=== PATIENT | female | born 1980 | race Caucasian/White ===

== ENCOUNTER 2017-03-18 12:45 | Inpatient (IN) | payer BC ==
[~2017-03-18] VITALS: Ht 167.6 cm; Wt 77.7 kg
[~2017-03-18 12:45] MED LIST: ASPI-496 PO; OXYC-302 PO; PNV#1COM9 PO
[2017-03-18 13:30] VITALS: BP 180/100
[2017-03-18] MEDS ORDERED: LABETALOL 5MG/ML, 20ML IVPush ONE (13:30)
[2017-03-18] MEDS ORDERED: LACTATED RINGERS 1,000 ML IV SCH (13:30)
[2017-03-18 13:43] LABS: ASPARTATE AMINO TRANSFERASE 25 U/L (15-37); BLOOD UREA NITROGEN 7 mg/dL (7-18)
[2017-03-18 13:55] LABS: DIFF TOTAL CELLS COUNTED 100 CELL DIFF
[2017-03-18 13:56] LABS: VERIFY COUNTS? YES
[2017-03-18] MEDS ORDERED: PLEASE ENTER HEIGHT AND WEIGHT MC SCH (14:00)
[2017-03-18] MEDS ORDERED: niFEDipine ER 60 MG TABLET.ER PO ONE (15:00)
[2017-03-18] MEDS ORDERED: niFEDipine ER 30 MG TABLET.ER PO ONE (15:30)
[2017-03-18] MEDS ORDERED: BETAMETHASONE 6 MG/ML, 5ML IM ONE (18:22)
[2017-03-18] MEDS: BETAMETHASONE 6 MG/ML, 5ML IM SCH (18:26)
[2017-03-18] MEDS: SODIUM CHLORIDE FLUSH 10ML SYR IVF SCH (20:48)
[2017-03-19] MEDS: SODIUM CHLORIDE FLUSH 10ML SYR IVF SCH ×3 (08:38→21:07)
[2017-03-19] MEDS ORDERED: niFEDipine ER 30 MG TABLET.ER PO SCH (09:00)
[2017-03-19] MEDS ORDERED: BETAMETHASONE 6 MG/ML, 5ML IM ONE ×2 (18:21→18:24)
[2017-03-19] MEDS: BETAMETHASONE 6 MG/ML, 5ML IM SCH (18:29)
[2017-03-19] MEDS: LABETALOL 200 MG TABLET PO SCH (18:35)
[2017-03-20 06:02] LABS: BLOOD UREA NITROGEN 12 mg/dL (7-18)
[2017-03-20 06:06] LABS: ASPARTATE AMINO TRANSFERASE 15 U/L (15-37)
[2017-03-20 08:07] VITALS: BP 134/77
[2017-03-20] MEDS: LABETALOL 200 MG TABLET PO SCH (08:20)
[2017-03-20] MEDS: SODIUM CHLORIDE FLUSH 10ML SYR IVF SCH (08:23)
[2017-03-20] MEDS ORDERED: ASPI-515 PO (15:23)
[2017-03-20] MEDS ORDERED: PREN1TAB60 PO (15:24)
[2017-03-20] MEDS ORDERED: LABE200T3 PO (15:25)
== END 2017-03-20 15:38 | disposition home or self-care (01) | DRG 782 ==
LOC: LDOP 12:45 → OBSVTOIN 13:27 → LDIP 13:27
PROVIDERS: ADMIT Obstetrics & Gynecology; ATTEND Obstetrics & Gynecology
DX: O13.3 Gestational [pregnancy-induced] hypertension without significant proteinuria, third trimester (principal); O99.113 Other diseases of the blood and blood-forming organs and certain disorders involving the immune mechanism complicating pregnancy, third trimester; D68.61 Antiphospholipid syndrome; O34.219 Maternal care for unspecified type scar from previous cesarean delivery; Z3A.28 28 weeks gestation of pregnancy
CPT/HCPCS: 36415; 76805; 80053; 81003; 81050; 82248; 82570; 82950; 84156; 84550; 85025; J0702; J7120

== ENCOUNTER 2017-04-05 14:08 | Inpatient (IN) | payer BC ==
[~2017-04-05] VITALS: Ht 167.6 cm; Wt 76.8 kg
[~2017-04-05 14:08] MED LIST changes: +ASPI-515 PO; +LABE200T3 PO; +PREN1TAB60 PO
[2017-04-05 14:22] VITALS: BP 143/97
[2017-04-05 14:53] LABS: PATH.CAST-FLAG NOT PRESENT; SPERM-FLAG NOT PRESENT; SRC-FLAG NOT PRESENT; XTAL-FLAG NOT PRESENT; YLC-FLAG NOT PRESENT
[2017-04-05 14:57] LABS: ASPARTATE AMINO TRANSFERASE 15 U/L (15-37); BLOOD UREA NITROGEN 9 mg/dL (7-18)
[2017-04-05] MEDS ORDERED: hydrALAzine 20 MG/ML, 1ML ONE ×2 (18:11→20:45)
[2017-04-05] MEDS: hydrALAzine 20 MG/ML, 1ML IV PRN ×2 (18:13→20:49)
[2017-04-05] MEDS: PRENATAL VIT/IRON/FA 1 EACH TABLET HOMEMEDPO SCH (20:22)
[2017-04-05] MEDS: ASPIRIN 81 MG TABLET CHEW HOMEMEDPO SCH (20:22)
[2017-04-05] MEDS: LABETALOL 200 MG TABLET HOMEMEDPO SCH (20:22)
[2017-04-05] MEDS: SODIUM CHLORIDE FLUSH 3ML SYRINGE IVF SCH (21:00)
[2017-04-05] MEDS: KETOROLAC 30 MG/1 ML IV SCH (22:30)
[2017-04-05] MEDS ORDERED: NEWBORN KIT ONE (22:30)
[2017-04-05] MEDS ORDERED: METOCLOPRAMIDE 5 MG/ML, 2ML ONE (22:48)
[2017-04-05] MEDS ORDERED: SODIUM CITRATE/CITRIC ACID 30 ML UDC ONE (22:48)
[2017-04-05] MEDS ORDERED: LACTATED RINGERS 1,000 ML IV SCH (22:57)
[2017-04-05] MEDS ORDERED: morphine SULFATE/PF 0.5 MG/ML, 10ML ONE (22:58)
[2017-04-05] MEDS ORDERED: LACTATED RINGERS 1,000 ML IVBOLUS ONE (23:00)
[2017-04-05] MEDS ORDERED: METOCLOPRAMIDE 5 MG/ML, 2ML IV ONE (23:00)
[2017-04-05] MEDS ORDERED: SODIUM CITRATE/CITRIC ACID 30 ML UDC PO ONE (23:00)
[2017-04-05] MEDS ORDERED: OXYTOCIN 30U/ 0.9% NaCL 500ML 500 ML ONE (23:13)
[2017-04-05] MEDS: LACTATED RINGERS 1,000 ML IV SCH ×2 (23:16)
[2017-04-05] MEDS ORDERED: CEFAZOLIN 1,000 MG ONE (23:24)
[2017-04-05] MEDS ORDERED: PHENYLEPHRINE 10 MG/ML ONE (23:24)
[2017-04-05] MEDS ORDERED: ONDANSETRON 2MG/ML, 2ML ONE (23:24)
[2017-04-05] MEDS ORDERED: EPHEDRINE 50 MG/ML, 1ML ONE (23:24)
[2017-04-05] MEDS ORDERED: ONDANSETRON 2MG/ML, 2ML IV PRN (23:30)
[2017-04-05] MEDS ORDERED: OXYcodone/APAP 5/325MG TABLET PO PRN (23:30)
[2017-04-05] MEDS ORDERED: morphine SULFATE 10 MG/ML, 1ML IVPush PRN (23:30)
[2017-04-05] MEDS ORDERED: MISOPROSTOL 200 MCG TABLET PR PRN (23:30)
[2017-04-05] MEDS ORDERED: OXYcodone IR 5MG TABLET PO PRN (23:30)
[2017-04-05] MEDS ORDERED: DOCUSATE 100 MG CAPSULE PO PRN (23:30)
[2017-04-06] MEDS ORDERED: OXYcodone/APAP 5/325MG TABLET ONE (02:31)
[2017-04-06] MEDS: OXYTOCIN 30U/ 0.9% NaCL 500ML 500 ML IV SCH ×3 (02:35→19:16)
[2017-04-06 03:05] VITALS: BP 138/94
[2017-04-06] MEDS: KETOROLAC 30 MG/1 ML IV SCH ×3 (06:23→18:29)
[2017-04-06 06:40] VITALS: BP 136/90
[2017-04-06] MEDS: LACTATED RINGERS 1,000 ML IV SCH ×5 (07:16→23:16)
[2017-04-06 08:24] LABS: DIFF TOTAL CELLS COUNTED 100 CELL DIFF
[2017-04-06 08:26] LABS: VERIFY COUNTS? YES
[2017-04-06] MEDS: SODIUM CHLORIDE FLUSH 3ML SYRINGE IVF SCH ×2 (09:00→20:54)
[2017-04-06] MEDS: LABETALOL 200 MG TABLET HOMEMEDPO SCH ×2 (09:00→20:54)
[2017-04-06 12:20] VITALS: BP 139/90
[2017-04-06 15:50] VITALS: BP 136/86
[2017-04-06 20:46] VITALS: BP 154/93
[2017-04-06] MEDS: DOCUSATE 100 MG CAPSULE PO PRN (20:55)
[2017-04-06] MEDS: PRENATAL VIT/IRON/FA 1 EACH TABLET HOMEMEDPO SCH (20:56)
[2017-04-06] MEDS: ASPIRIN 81 MG TABLET CHEW HOMEMEDPO SCH (20:56)
[2017-04-06] MEDS: PRENATAL VIT/IRON/FA 1 EACH TABLET PO SCH (20:57)
[2017-04-07 00:09] VITALS: BP 139/84
[2017-04-07] MEDS: KETOROLAC 30 MG/1 ML IV SCH ×4 (00:36→19:25)
[2017-04-07 04:31] VITALS: BP 141/99
[2017-04-07] MEDS: LACTATED RINGERS 1,000 ML IV SCH ×5 (05:16→23:16)
[2017-04-07] MEDS: OXYTOCIN 30U/ 0.9% NaCL 500ML 500 ML IV SCH ×2 (05:16→15:16)
[2017-04-07 08:00] VITALS: BP 151/99
[2017-04-07] MEDS: SODIUM CHLORIDE FLUSH 3ML SYRINGE IVF SCH ×2 (08:03→21:00)
[2017-04-07] MEDS: LABETALOL 200 MG TABLET HOMEMEDPO SCH ×2 (08:03→21:45)
[2017-04-07] MEDS: DOCUSATE 100 MG CAPSULE PO PRN (08:03)
[2017-04-07] MEDS: PRENATAL VIT/IRON/FA 1 EACH TABLET PO SCH (08:14)
[2017-04-07 19:30] VITALS: BP 145/96
[2017-04-07] MEDS: ASPIRIN 81 MG TABLET CHEW HOMEMEDPO SCH (21:45)
[2017-04-07] MEDS: PRENATAL VIT/IRON/FA 1 EACH TABLET HOMEMEDPO SCH (21:45)
[2017-04-08] VITALS (7 sets, daily range): BP systolic 124–162; BP diastolic 84–107
[2017-04-08] MEDS: LACTATED RINGERS 1,000 ML IV SCH ×2 (00:20→07:16)
[2017-04-08] MEDS: OXYTOCIN 30U/ 0.9% NaCL 500ML 500 ML IV SCH (00:20)
[2017-04-08] MEDS: IBUPROFEN 600 MG TABLET PO PRN ×4 (01:52→20:37)
[2017-04-08] MEDS: DOCUSATE 100 MG CAPSULE PO PRN ×2 (07:15→19:16)
[2017-04-08] MEDS: LABETALOL 200 MG TABLET HOMEMEDPO SCH ×2 (07:20→20:38)
[2017-04-08] MEDS: SODIUM CHLORIDE FLUSH 3ML SYRINGE IVF SCH ×2 (09:00→21:00)
[2017-04-08] MEDS: PRENATAL VIT/IRON/FA 1 EACH TABLET PO SCH (09:00)
[2017-04-08] MEDS ORDERED: ACETAMINOPHEN 325 MG TABLET PO PRN (19:00)
[2017-04-08] MEDS: HEPARIN 5,000 UNITS/ML, 1ML SQ SCH (20:39)
[2017-04-08] MEDS: PRENATAL VIT/IRON/FA 1 EACH TABLET HOMEMEDPO SCH (20:43)
[2017-04-08] MEDS: ASPIRIN 81 MG TABLET CHEW HOMEMEDPO SCH (23:10)
[2017-04-09 02:15] VITALS: BP 139/94
[2017-04-09] MEDS: IBUPROFEN 600 MG TABLET PO PRN ×3 (02:27→14:49)
[2017-04-09 08:05] VITALS: BP 152/104
[2017-04-09] MEDS: LABETALOL 200 MG TABLET HOMEMEDPO SCH (08:12)
[2017-04-09] MEDS: HEPARIN 5,000 UNITS/ML, 1ML SQ SCH (08:12)
[2017-04-09] MEDS: DOCUSATE 100 MG CAPSULE PO PRN (08:22)
[2017-04-09] MEDS: SODIUM CHLORIDE FLUSH 3ML SYRINGE IVF SCH (09:00)
[2017-04-09] MEDS: niFEDipine ER 30 MG TABLET.ER PO SCH ×2 (09:00→09:02)
[2017-04-09 10:30] VITALS: BP 130/90
[2017-04-09] MEDS ORDERED: OXYC-302 PO (11:30)
[2017-04-09] MEDS ORDERED: IBUP-1222 PO (11:31)
[2017-04-09] MEDS ORDERED: LABE300T PO (11:31)
[2017-04-09] MEDS ORDERED: NIFE30TA2 PO (11:32)
[2017-04-09 12:44] VITALS: BP 121/78
== END 2017-04-09 17:25 | disposition home or self-care (01) | DRG 765 ==
LOC: LDOP 14:08 → LDIP 14:15 → OBSVTOIN 15:45 → 2NW 04-06 02:50
PROVIDERS: ADMIT Obstetrics & Gynecology; ATTEND Obstetrics & Gynecology
PROC: 10D00Z1 Extraction of Products of Conception, Low, Open Approach (ICD-10-PCS; principal; 2017-04-05)
DX: O14.94 Unspecified pre-eclampsia, complicating childbirth (principal); O99.12 Other diseases of the blood and blood-forming organs and certain disorders involving the immune mechanism complicating childbirth; D68.61 Antiphospholipid syndrome; O41.03X0 Oligohydramnios, third trimester, not applicable or unspecified; O34.211 Maternal care for low transverse scar from previous cesarean delivery; O60.14X0 Preterm labor third trimester with preterm delivery third trimester, not applicable or unspecified; O76 Abnormality in fetal heart rate and rhythm complicating labor and delivery; Z3A.30 30 weeks gestation of pregnancy; Z37.0 Single live birth; Z79.82 Long term (current) use of aspirin
CPT/HCPCS: 36415; 80053; 81001; 82248; 82570; 82803; 84156; 84550; 85025; 86850; 86900; 88307; J0690; J1644; J1885; J2274; J2405; G0378; J0360; J2370; J2590; J2765; J7120